=== PATIENT | female | born 1990 | race Two or more races ===

== ENCOUNTER 2019-06-24 12:22 | Inpatient (IN) | payer OTHER ==
[~2019-06-24] VITALS: Ht 165.1 cm; Wt 66.7 kg
[2019-06-24] MEDS ORDERED: PRENATAL TABLE1 EACH PO (13:59)
== END 2019-06-26 12:48 | disposition home or self-care (01) | DRG 768 ==
LOC: OB/GYN 12:22 → LDR 12:22 → OB/GYN 17:07
PROVIDERS: ADMIT Specialist
PROC: 10E0XZZ Delivery of Products of Conception, External Approach (ICD-10-PCS; principal; 2019-06-24)
PROC: 0UQM0ZZ Repair Vulva, Open Approach (ICD-10-PCS; 2019-06-24)
PROC: 4A0HXFZ Measurement of Products of Conception, Cardiac Rhythm, External Approach (ICD-10-PCS; 2019-06-24)
DX: O71.82 Other specified trauma to perineum and vulva (principal); Z37.0 Single live birth; Z3A.40 40 weeks gestation of pregnancy; Z22.330 Carrier of Group B streptococcus